=== PATIENT | female | born 1950 | race Caucasian/White ===

== ENCOUNTER → 2017-05-25 | Outpatient (CLI) | payer OTHER | LOC: BMCIMAGING 07:13 | PROVIDERS: ATTEND Family Medicine | DX: K76.9 Liver disease, unspecified (principal) ==

== ENCOUNTER → 2017-05-27 | Outpatient (CLI) | payer OTHER | LOC: BMCIMAGING 14:24 | PROVIDERS: ATTEND Family Medicine | DX: Z13.820 Encounter for screening for osteoporosis (principal); M85.852 Other specified disorders of bone density and structure, left thigh; M54.9 Dorsalgia, unspecified; R10.11 Right upper quadrant pain; R31.0 Gross hematuria; R74.0 Nonspecific elevation of levels of transaminase and lactic acid dehydrogenase [LDH] ==

== ENCOUNTER 2017-11-03 00:06 | Observation (INO) | payer OTHER ==
[2017-11-03] MEDS ORDERED: NS 1,000 ML IV ONE (00:14)
--- NOTE | 2017-11-03 00:14 | EDPHY ---
H & P Stated Complaint: R SIDED ABD PAIN Time Seen by Provider: 11/03/17 00:13 HPI/ROS: HPI CHIEF COMPLAINT: Abdominal pain HISTORY OF PRESENT ILLNESS: 66-year-old female, otherwise healthy with no significant medical history or surgical history specifically no abdominal surgical history, presents emergency room with abdominal pain. She describes right-sided mainly in the right lower quadrant. Started around 7:00 p.m. At night it is now 1230 in the morning. She states that she ate salmon for dinner. She otherwise felt well. At 7:00 p.m. She developed a dull sharp pain in the right lower quadrant. Nonradiating no back pain. Denies any urinary symptoms. Denies fever. Denies chest pain or shortness of breath. Main complaint ongoing right lower quadrant pain currently 10. Denies vaginal discharge or urinary symptoms. Denies back pain. Past Medical History: Denies medical history Past Surgical History: Denies surgical history Social History: Denies drugs alcohol tobacco. Family History: Noncontributory ROS REVIEW OF SYSTEMS: A comprehensive 10 point review of systems is otherwise negative aside from elements mentioned in the history of present illness. Exam Constitutional nontoxic appearing in no acute distress triage nursing summary reviewed, vital signs reviewed, awake/alert. Eyes normal conjunctivae and sclera, EOMI, PERRLA. HENT normal inspection, atraumatic, moist mucus membranes, no epistaxis, neck supple/ no meningismus, no raccoon eyes. Respiratory clear to auscultation bilaterally, normal breath sounds, no respiratory distress, no wheezing. Cardiovascular rate normal, regular rhythm, no murmur, no edema, distal pulses normal. Gastrointestinal mild tender palpation right lower quadrant no rebound, no guarding, normal bowel sounds, no distension, no pulsatile mass. Genitourinary no CVA tenderness. Musculoskeletal no midline vertebral tenderness, full range of motion, no calf swelling, no tenderness of extremities, no meningismus, good pulses, neurovascularly intact. Skin pink, warm, & dry, no rash, skin atraumatic. Neurologic awake, alert and oriented x 3, AAOx3, moves all 4 extremities equally, motor intact, sensory intact, CN II-XII intact, normal cerebellar, normal vision, normal speech. Psychiatric normal mood/affect. Heme/Lymph/Immune no lymphadenopathy. Differential diagnosis includes but is not limited to and in no particular order: Bowel obstruction, appendicitis, gallbladder disease, diverticulitis, colitis, enteritis, perforated viscus, gastritis, GERD, esophagitis, urinary tract infection, pyelonephritis, kidney stones Medical Decision Making: Plan for this patient IV establishment IV fluid bolus 0.5 mg IV Dilaudid for pain control, 4 mg IV Zofran for nausea, CT scan abdomen pelvis with IV contrast full acute appendicitis. Check lactic acid and blood work. Re-evaluation: CT scan abdomen pelvis with IV contrast shows acute appendicitis. There are incidental finding seen there is a liver lesion and a splenic lesion. These will need follow-up in 6 months. Please see full dictation report by Dr. Coulter. Given the patient's acute appendicitis. IV Invanz has been ordered. I will consult General surgery for admission. I have updated the patient about appendicitis. 0154: Spoke with Dr. Madi MENDES surgery he will consult and see the patient. Source: Patient - Personal History Current Tetanus Diphtheria and Acellular Pertussis (TDAP): Yes - Medical/Surgical History Hx Asthma: No Hx Chronic Respiratory Disease: No Hx Diabetes: No Hx Cardiac Disease: No Hx Renal Disease: No Hx Cirrhosis: No Hx Alcoholism: No Hx HIV/AIDS: No Hx Splenectomy or Spleen Trauma: No Other PMH: MENOPAUSE SYMPTOMS - Social History Smoking Status: Never smoked Constitutional: Initial Vital Signs Temperature (C) 36.5 C 11/03/17 00:10 Heart Rate 62 11/03/17 00:10 Respiratory Rate 16 11/03/17 00:10 Blood Pressure 133/85 H 11/03/17 00:10 O2 Sat (%) 98 11/03/17 00:10 O2 Delivery Mode Room Air Allergies/Adverse Reactions: Sulfa (Sulfonamide Antibiotics) Allergy (Intermediate, Verified 06/08/15 14:06) Home Medications: Medication Instructions Recorded Estrogen And Progesterone 06/08/15 Medical Decision Making - Data Points Laboratory Results: Laboratory Results 11/03/17 00:20 11/03/17 00:20 11/03/17 11/03/17 11/03/17 00:35 00:20 00:20 WBC RBC Hgb Hct MCV MCH MCHC RDW Plt Count MPV Neut % (Auto) Lymph % (Auto) [place] % (Auto) Eos % (Auto) Baso % (Auto) Nucleat RBC Rel Count Absolute Neuts (auto) Absolute Lymphs (auto) Absolute Monos (auto) Absolute Eos (auto) Absolute Basos (auto) Absolute Nucleated RBC Immature Gran % Immature Gran # PT 13.2 SEC SEC (12.0-15.0) INR 0.98 (0.83-1.16) APTT 26.6 SEC SEC (23.0-38.0) VBG Lactic Acid 0.6 mmol/L L mmol/L (0.7-2.1) Sodium 140 mEq/L mEq/L (135-145) Potassium 4.0 mEq/L mEq/L (3.3-5.0) Chloride 105 mEq/L mEq/L (97-110) Carbon Dioxide 25 mEq/l mEq/l (22-31) Anion Gap 10 mEq/L mEq/L (8-16) BUN 19 mg/dL mg/dL (7-23) Creatinine 0.8 mg/dL mg/dL (0.6-1.0) Estimated GFR > 60 Glucose 91 mg/dL mg/dL (70-100) Calcium 10.0 mg/dL mg/dL (8.5-10.4) Total Bilirubin 0.5 mg/dL mg/dL (0.1-1.4) Conjugated Bilirubin 0.3 mg/dL mg/dL (0.0-0.5) Unconjugated Bilirubin 0.2 mg/dL mg/dL (0.0-1.1) AST 33 IU/L IU/L (14-46) ALT 59 IU/L H IU/L (9-52) Alkaline Phosphatase 90 IU/L IU/L (38-126) Total Protein 6.6 g/dL g/dL (6.3-8.2) Albumin 4.1 g/dL g/dL (3.5-5.0) Lipase 65 IU/L IU/L (23-300) 11/03/17 00:20 WBC 9.64 10^3/uL H 10^3/uL (3.80-9.50) RBC 4.34 10^6/uL 10^6/uL (4.18-5.33) Hgb 13.6 g/dL g/dL (12.6-16.3) Hct 40.5 % % (38.0-47.0) MCV 93.3 fL fL (81.5-99.8) MCH 31.3 pg pg (27.9-34.1) MCHC 33.6 g/dL g/dL (32.4-36.7) RDW 12.5 % % (11.5-15.2) Plt Count 218 10^3/uL 10^3/uL (150-400) MPV 11.1 fL fL (8.7-11.7) Neut % (Auto) 76.8 % H % (39.3-74.2) Lymph % (Auto) 12.9 % L % (15.0-45.0) [place] % (Auto) 6.1 % % (4.5-13.0) Eos % (Auto) 3.2 % % (0.6-7.6) Baso % (Auto) 0.6 % % (0.3-1.7) Nucleat RBC Rel Count 0.0 % % (0.0-0.2) Absolute Neuts (auto) 7.40 10^3/uL H 10^3/uL (1.70-6.50) Absolute Lymphs (auto) 1.24 10^3/uL 10^3/uL (1.00-3.00) Absolute Monos (auto) 0.59 10^3/uL 10^3/uL (0.30-0.80) Absolute Eos (auto) 0.31 10^3/uL 10^3/uL (0.03-0.40) Absolute Basos (auto) 0.06 10^3/uL 10^3/uL (0.02-0.10) Absolute Nucleated RBC 0.00 10^3/uL 10^3/uL (0-0.01) Immature Gran % 0.4 % % (0.0-1.1) Immature Gran # 0.04 10^3/uL 10^3/uL (0.00-0.10) PT INR APTT VBG Lactic Acid Sodium Potassium Chloride Carbon Dioxide Anion Gap BUN Creatinine Estimated GFR Glucose Calcium Total Bilirubin Conjugated Bilirubin Unconjugated Bilirubin AST ALT Alkaline Phosphatase Total Protein Albumin Lipase Medications Given: Discontinued Medications Hydromorphone HCl (Dilaudid) 0.5 mg IVP EDNOW ONE Stop: 11/03/17 00:24 Last Admin: 11/03/17 00:27 Dose: 0.5 mg Hydromorphone HCl (Dilaudid) 0.5 mg IVP EDNOW ONE Stop: 11/03/17 01:11 Last Admin: 11/03/17 01:15 Dose: 0.5 mg Sodium Chloride (Ns) 1,000 mls @ 0 mls/hr IV EDNOW ONE; Wide Open PRN Reason: Protocol Stop: 11/03/17 00:15 Last Admin: 11/03/17 00:23 Dose: 1,000 mls Ondansetron HCl (Zofran) 4 mg IVP EDNOW ONE Stop: 11/03/17 00:24 Last Admin: 11/03/17 00:25 Dose: 4 mg Departure - Departure Disposition: [facility] Inpatient Acute Clinical Impression: Acute appendicitis Qualifiers: Acute appendicitis type: with localized peritonitis Qualified Code(s): K35.3 - Acute appendicitis with localized peritonitis Condition: Good
[2017-11-03] MEDS ORDERED: HYDROmorphONE/DILAUDID 2 MG/ML INJ IVP ONE ×2 (00:23→01:10)
[2017-11-03] MEDS ORDERED: ONDANSETRON 4 MG/2 ML VIAL IVP ONE ×2 (00:23→02:29)
[2017-11-03] MEDS ORDERED: HYDROmorphONE/DILAUDID 1 MG/ML INJ ONE (00:23)
[2017-11-03] MEDS ORDERED: IOPAMIDOL (ISOVUE-300) 100 ML BTL ONE (00:28)
[2017-11-03 00:35] LABS: PLATELET COUNT 218 10^3/uL (150-400)
[2017-11-03 00:39] LABS: INR 0.98 (0.83-1.16); PROTIME(PATIENT) 13.2 SEC (12.0-15.0)
[2017-11-03] MEDS ORDERED: ERTAPENEM 1 GM in NS 100 ML IV ONE (01:45)
[2017-11-03] MEDS ORDERED: ONDANSETRON 4 MG/2 ML VIAL ONE (02:28)
[2017-11-03] MEDS ORDERED: BUPIVACAINE/EPI 0.5% 30 ML SDV ONE (02:29)
[2017-11-03] MEDS ORDERED: HEPARIN 1000 UNIT/1 ML MDV ONE (02:29)
[2017-11-03] MEDS ORDERED: BUPIVACAINE 0.25% 30 ML SDV ONE (02:30)
[2017-11-03] MEDS ORDERED: ceFAZolin 1 GM/5 ML SYR ONE (02:30)
[2017-11-03] MEDS ORDERED: fentaNYL 100 MCG/2 ML INJ ONE ×2 (02:53→03:58)
[2017-11-03] MEDS ORDERED: PROPOFOL 200 MG/20 ML VIAL ONE (02:54)
[2017-11-03] MEDS ORDERED: ROCURONIUM 50 MG/5 ML VIAL ONE (02:55)
[2017-11-03] MEDS ORDERED: METOCLOPRAMIDE 10 MG/2 ML VIAL ONE (02:55)
[2017-11-03] MEDS ORDERED: MIDAZOLAM 2 MG/2 ML VIAL ONE (02:58)
[2017-11-03] MEDS ORDERED: OXYCODONE/APAP 5/325 TAB PO PRN (03:09)
[2017-11-03] MEDS ORDERED: HYDROmorphONE/DILAUDID 1 MG/ML INJ IVP PRN (03:09)
[2017-11-03] MEDS ORDERED: ONDANSETRON 4 MG/2 ML VIAL IVP PRN (03:09)
--- NOTE | 2017-11-03 03:13 | POSTOPPROG ---
Post Op Note Date of Operation: 11/03/17 Surgeon: Guille Barraza Anesthesiologist: sathya Anesthesia: GET(General Endotracheal) Pre-op Diagnosis: acute appe Post-op Diagnosis: same Indication: pain Procedure: lap appe Findings: acute appe Inf/Abcess present in the surg proc area at time of surgery?: Yes Depth: Organ Space EBL: Minimal Complications: 0 Specimen(s): appendix
[2017-11-03] MEDS ORDERED: D5W 1/2 NS W/ 20 KCl/L 1,000 ML IV SCH (03:15)
--- NOTE | 2017-11-03 03:19 | PDANEPAE ---
ANE Past Medical History - Pulmonary History Hx Oxygen in Use at Home: No - Endocrine History Hx Diabetes: No ANE Review of Systems Review of Systems: ANE Patient History - Allergies Allergies/Adverse Reactions: Sulfa (Sulfonamide Antibiotics) Allergy (Intermediate, Verified 06/08/15 14:06) - Home Medications Home Medications: Estrogen And Progesterone 06/08/15 [Last Taken Unknown] - NPO status NPO Since - Liquids (Date): 11/02/17 NPO Since - Liquids (Time): 19:00 NPO Since - Solids (Date): 11/02/17 NPO Since - Solids (Time): 19:00 - Smoking Hx Smoking Status: Never smoked ANE Labs/Vital Signs - Labs Result Diagrams: 11/03/17 00:20 11/03/17 00:20 - Vital Signs Blood Pressure: 118/67 Heart Rate: 57 Respiratory Rate: 16 O2 Sat (%): 97 Height: 157.48 cm Weight: 54.885 kg ANE Physical Exam - Airway Mallampati Score: Class 1 - ASA Status ASA Status: II, E ANE Anesthesia Plan Anesthesia Plan: general endotracheal anesthesia Urgent/Emergent Case: Gina aldana completed preop but documented later for safe timely pt care
[2017-11-03] MEDS ORDERED: SUGAMMADEX SODIUM 200 MG/2 ML VIAL IVP ONE (03:28)
[2017-11-03] MEDS ORDERED: LR 1,000 ML IV ONE (03:39)
[2017-11-03] MEDS ORDERED: NALOXONE HCL 0.4 MG/ML INJ IVP PRN (03:46)
[2017-11-03] MEDS ORDERED: LR 500 ML IV PRN (03:46)
[2017-11-03] MEDS ORDERED: PROMETHAZINE HCL 25 MG/ML INJ IVP PRN (03:46)
--- NOTE | 2017-11-03 03:50 | POSTANESTH ---
Post Anesthetic Evaluation Cardiovascular Status: Normal, Stable Respiratory Status: Normal, Stable Level of Consciousness/Mental Status: Can Participate in Eval Pain Control: Adequate, Prn Tx Ordered Nausea/Vomiting Control: Adequate, Prn Tx Ordered Complications Possibly Related to Anesthesia: None Noted
[2017-11-03] MEDS: fentaNYL 100 MCG/2 ML INJ IVP PRN ×2 (04:00→04:14)
[2017-11-03] MEDS: KETOROLAC 15 MG/1 ML SDV IVP SCH ×2 (05:41→12:02)
[2017-11-03 08:18] VITALS: BP 95/61
--- NOTE | 2017-11-03 10:51 | SOAPPROG ---
SOAP Progress Note Assessment/Plan: Assessment/Plan: 66 Y F s/p lap appy for acute nonperforated appendicitis. POD# 1. Seen and examined by Dr. Barraza. Porsche Thorpe acting as scribe: Wounds intact. Tolerating diet. Pain controlled. D/c to home. Limitations and d/u discussed. 11/03/17 10:50 Objective: Vital Signs Temp Pulse Resp BP Pulse Ox 36.9 C 47 L 12 95/61 L 100 11/03/17 08:16 11/03/17 08:16 11/03/17 08:16 11/03/17 08:16 11/03/17 08:16 11/02/17 11/03/17 11/04/17 05:59 05:59 05:59 Intake Total 1200 Output Total 5 Balance 1195 PT 13.2 SEC (12.0-15.0) 11/03/17 00:20 INR 0.98 (0.83-1.16) 11/03/17 00:20 ICD10 Worksheet Patient Problems: Problems Problem Status Onset Acute appendicitis Acute
--- NOTE | 2017-11-26 11:22 | GOP ---
[f rep st] OPERATIVE REPORT DATE OF OPERATION: SURGEON: Guille Barraza MD FRANCHISE BROKER: There was no licensed sales assistant. ANESTHESIA: Dr. Pozo. PREOPERATIVE DIAGNOSIS: Acute appendicitis. POSTOPERATIVE DIAGNOSIS: Acute appendicitis. PROCEDURE PERFORMED: Laparoscopic appendectomy FINDINGS: Patient was found to have acute suppurative nonperforated appendicitis. ESTIMATED BLOOD LOSS: Negligible. DESCRIPTION OF PROCEDURE: The patient was taken to the the operating room where she received satisfactory general endotracheal anesthesia by Dr. Pozo. She was placed in the supine position, prepped and draped in usual sterile fashion. An infraumbilical incision was made. A Veress needle was inserted. Pneumoperitoneum was established. Trocar was introduced. Laparoscope introduced. Good visualization was obtained. Two other trocars were placed in the midline under direct vision. The cecum was rotated medially. The appendix was readily visualized. The mesoappendix was divided with the Harmonic Scalpel , skeletonizing the appendix. Base was divided with the Harmonic Scalpel and placed in a specimen bag and extracted through the upper midline port site. Wound was irrigated. Hemostasis was assured. Trocars removed under direct vision. Trocar sites were closed with 0 Vicryl for the fascia and 4-0 Monocryl subcuticular stitch for the skin. All layers infiltrated with 0.5% Marcaine. PROCEDURE: Laparoscopic appendectomy. COMPLICATIONS: None and taken to recovery room in good condition. /[id number]/MODL MTDD
== END 2017-11-03 12:45 | disposition home or self-care (01) ==
LOC: INTOOBSV 01:49 → F1N 04:28
PROVIDERS: ADMIT Surgery; ATTEND Surgery
PROC: 0DTJ4ZZ Resection of Appendix, Percutaneous Endoscopic Approach (ICD-10-PCS; principal; 2017-11-03 02:30)
DX: K35.80 Unspecified acute appendicitis (principal)
CPT/HCPCS: 44970; 74177; 88304; G0378; J1170; J1335; J1885; J2250; J2405; J2704; J2765; J3010; Q9967; 96365

== ENCOUNTER → 2018-05-13 | Outpatient (CLI) | payer OTHER | LOC: BMCIMAGING 11:16 | PROVIDERS: ATTEND Family Medicine | DX: K59.00 Constipation, unspecified (principal); R41.89 Other symptoms and signs involving cognitive functions and awareness; R74.8 Abnormal levels of other serum enzymes ==

== ENCOUNTER 2018-07-20 22:02 | Emergency (ER) | payer OTHER ==
[2018-07-20] MEDS ORDERED: ONDANSETRON 4 MG/2 ML VIAL IVP ONE (22:35)
[2018-07-20] MEDS ORDERED: NS 1,000 ML IV ONE ×2 (22:35→22:36)
--- NOTE | 2018-07-20 22:37 | EDPHY ---
H & P Stated Complaint: vomiting, nausea, headache, dehydrated Time Seen by Provider: 07/20/18 22:28 HPI/ROS: Chief Complaint: Vomiting, dehydration, chills, cough HPI: 67-year-old woman with no significant medical history is presenting with 2 days of chills, mildly productive cough. Patient started developing nausea vomiting today. Has vomited multiple times. Feels dehydrated. Did not check her temperature at home. Complaining of a moderate headache. No chest pain or shortness of breath. Is complaining some body aches. No abdominal pain. No diarrhea or constipation. No blood or coffee-grounds in her vomit. No dark tarry stools or blood in her stool. She has vomited multiple times and is complaining of feeling very dry mouth and dehydrated. She is has not taken any medicine. ROS: 10 systems were reviewed and were negative except those elements noted in the HPI. PMH: Denies Social History: No smoking, no alcohol, no recreational drug use Family History: non-contributory Physical Exam: Gen: Awake, Alert, No Distress HEENT: Nose: no rhinorrhea Eyes: PERRLA, EOMI Mouth: Dry mucosa Neck: Supple, no JVD Chest: nontender, lungs clear to auscultation Heart: S1, S2 normal, no murmur Abd: Soft, non-tender, no guarding Back: no CVA tenderness, no midline tenderness Ext: no edema, non-tender Skin: no rash Neuro: CN II-XII intact, Sensation grossly intact, Strength 5/5 in bilateral upper and lower extremities - Personal History Current Tetanus Diphtheria and Acellular Pertussis (TDAP): Unsure - Medical/Surgical History Hx Asthma: No Hx Chronic Respiratory Disease: No Hx Diabetes: No Hx Cardiac Disease: No Hx Renal Disease: No Hx Cirrhosis: No Hx Alcoholism: No Hx HIV/AIDS: No Hx Splenectomy or Spleen Trauma: No Other PMH: MENOPAUSE SYMPTOMS - Social History Smoking Status: Never smoked Constitutional: Initial Vital Signs Temperature (C) 36.5 C 07/20/18 22:05 Heart Rate 63 07/20/18 22:05 Respiratory Rate 20 07/20/18 22:05 Blood Pressure 131/84 H 07/20/18 22:05 O2 Sat (%) 98 07/20/18 22:05 O2 Delivery Mode Room Air Allergies/Adverse Reactions: Sulfa (Sulfonamide Antibiotics) Allergy (Intermediate, Verified 07/20/18 22:05) Home Medications: Medication Instructions Recorded Cholecalciferol Vit D3 [Vitamin D3 1,000 units PO DAILY 11/03/17 (*)] Compounded Progesterone 50mg 50 mg PO HS 11/03/17 Ibuprofen [Motrin (*)] 600 mg PO Q6H #30 tab 11/03/17 [place]-3 Fatty Acids [Fish Oil 1000 1,000 mg PO DAILY 11/03/17 mg (*)] oxyCODONE/APAP 5/325 [Percocet 1 - 2 tab PO Q4 PRN #10 tab 11/03/17 5/325 (*)] Ondansetron Odt [Zofran Odt 4 mg 4 mg PO Q4 PRN #10 tab 07/21/18 (*)] Medical Decision Making ED Course/Re-evaluation: Patient is improved after 2 L of fluid and Zofran. She has not have leukocytosis. She does have a moderate hyponatremia. This is likely secondary to her significant water ingestion. I have advised her to avoid free water and to drink Pedialyte. She will follow up with primary care physician for recheck of her sodium levels when she is well. She is tolerating p. O. Now and feeling much improved. - Data Points Laboratory Results: Laboratory Results 07/20/18 22:45 07/20/18 22:45 07/20/18 07/20/18 07/20/18 23:35 22:45 22:45 WBC 4.91 10^3/uL 10^3/uL (3.80-9.50) RBC 4.43 10^6/uL 10^6/uL (4.18-5.33) Hgb 13.4 g/dL g/dL (12.6-16.3) Hct 39.3 % % (38.0-47.0) MCV 88.7 fL fL (81.5-99.8) MCH 30.2 pg pg (27.9-34.1) MCHC 34.1 g/dL g/dL (32.4-36.7) RDW 12.5 % % (11.5-15.2) Plt Count 170 10^3/uL 10^3/uL (150-400) MPV 11.0 fL fL (8.7-11.7) Neut % (Auto) Not Reported Lymph % (Auto) Not Reported [place] % (Auto) Not Reported Eos % (Auto) Not Reported Baso % (Auto) Not Reported Nucleat RBC Rel Count Not Reported Absolute Neuts (auto) Not Reported Absolute Lymphs (auto) Not Reported Absolute Monos (auto) Not Reported Absolute Eos (auto) Not Reported Absolute Basos (auto) Not Reported Absolute Nucleated RBC Not Reported Immature Gran % Not Reported Seg Neutrophils % 85.0 % % Band Neutrophils % 0.0 % % Lymphocytes % 9.0 % % Monocytes % 5.0 % % Eosinophils % 1.0 % % Basophils % 0.0 % % Metamyelocytes % 0.0 % % Myelocytes % 0.0 % % Promyelocytes % 0.0 % % Blast Cells % 0.0 % % Immature Gran # Not Reported Absolute Seg Neuts 4.17 10^3/uL 10^3/uL (1.70-6.50) Absolute Band Neuts 0.00 10^3/uL 10^3/uL (0.00-0.70) Absolute Lymphocytes 0.44 10^3/uL L 10^3/uL (1.00-3.00) Absolute Monocytes 0.25 10^3/uL L 10^3/uL (0.30-0.80) Absolute Eosinophils 0.05 10^3/uL 10^3/uL (0.03-0.40) Absolute Basophils 0.00 10^3/uL L 10^3/uL (0.02-0.10) Absolute Metamyelocyte 0.00 10^3/mL 10^3/mL (0.00-0.00) Absolute Myelocytes 0.00 10^3/mL 10^3/mL (0.00-0.00) Absolute Promyelocytes 0.00 10^3/uL 10^3/uL (0.00-0.00) Absolute Plasma Cells 0.00 10^3/uL 10^3/uL (0.00-0.00) Nucleated RBCs 0 /100 WBC /100 WBC (0-0) Absolute Blast Cells 0.00 10^3/uL 10^3/uL (0.00-0.00) Plasma Cells % 0.0 % % Platelet Estimate ADEQUATE (ADEQ) Sodium 127 mEq/L L mEq/L (135-145) Potassium 3.8 mEq/L mEq/L (3.5-5.2) Chloride 99 mEq/L mEq/L (97-110) Carbon Dioxide 22 mEq/l mEq/l (22-31) Anion Gap 6 mEq/L mEq/L (6-14) BUN 9 mg/dL mg/dL (7-23) Creatinine 0.6 mg/dL mg/dL (0.6-1.0) Estimated GFR > 60 Glucose 105 mg/dL H mg/dL (70-100) Calcium 9.4 mg/dL mg/dL (8.5-10.4) Urine Color COLORLESS Urine Appearance CLEAR Urine pH 6.0 (5.0-7.5) Ur Specific [place] 1.002 (1.002-1.030) Urine Protein NEGATIVE (NEGATIVE) Urine Ketones TRACE H (NEGATIVE) Urine Blood 1+ H (NEGATIVE) Urine Nitrate NEGATIVE (NEGATIVE) Urine Bilirubin NEGATIVE (NEGATIVE) Urine Urobilinogen NEGATIVE EU EU (0.2-1.0) Ur Leukocyte Esterase NEGATIVE (NEGATIVE) Urine RBC 1-3 /hpf /hpf (0-3) Urine WBC 0-1 /hpf /hpf (0-3) Ur Epithelial Cells NONE SEEN /lpf /lpf (NONE-1+) Urine Glucose NEGATIVE (NEGATIVE) Medications Given: Discontinued Medications Sodium Chloride (Ns) 1,000 mls @ 0 mls/hr IV ONCE ONE; Wide Open PRN Reason: Protocol Stop: 07/20/18 22:36 Last Admin: 07/20/18 22:38 Dose: 1,000 mls Sodium Chloride (Ns) 1,000 mls @ 0 mls/hr IV ONCE ONE; Wide Open PRN Reason: Protocol Stop: 07/20/18 22:37 Last Admin: 07/20/18 22:44 Dose: 1,000 mls Ketorolac Tromethamine (Toradol) 15 mg IVP EDNOW ONE Stop: 07/20/18 23:34 Last Admin: 07/20/18 23:49 Dose: 15 mg Ondansetron HCl (Zofran) 4 mg IVP EDNOW ONE Stop: 07/20/18 22:36 Last Admin: 07/20/18 22:43 Dose: 4 mg Departure - Departure Disposition: Home, Routine, Self-Care Clinical Impression: Nausea & vomiting, Dehydration, Hyponatremia Condition: Good Instructions: Ondansetron (By mouth), Dehydration (ED), Hyponatremia (ED), Acute Nausea and Vomiting (ED), Viral Syndrome (ED) Additional Instructions: You may take the Zofran every 4 hr as needed for nausea vomiting. I recommend Pedialyte for rehydration. Avoid water as her sodium was low in the emergency department today. Follow-up with primary care physician 2-3 weeks to recheck her sodium levels. Return to the emergency department for uncontrolled nausea vomiting, dehydration , fevers, cough, shortness of breath, or any other concerns. Referrals: Melida Enriquez MD [Primary Care Provider] - As per Instructions Prescriptions: Ondansetron Odt [Zofran Odt 4 mg (*)] 4 mg PO Q4 PRN #10 tab PRN Reason: nausea
[2018-07-20 22:51] LABS: PLATELET COUNT 170 10^3/uL (150-400)
[2018-07-20] MEDS ORDERED: KETOROLAC 15 MG/1 ML SDV IVP ONE (23:33)
[2018-07-21] MEDS ORDERED: ONDANSETRON 4MG PREPACK#2 BTL TAKEHOME ONE (00:45)
[2018-07-21 00:51] VITALS: BP 127/80
== END 2018-07-21 00:49 | disposition home or self-care (01) ==
DX: R11.2 Nausea with vomiting, unspecified (principal); E86.0 Dehydration; E87.1 Hypo-osmolality and hyponatremia; E86.9 Volume depletion, unspecified
CPT/HCPCS: 96361; 96374; 96375; 96376; 99284; J1885; J2405